=== PATIENT | female | born 1995 | race Two or more races ===

== ENCOUNTER 2024-03-26 07:54 | Day surgery (SDC) | payer OTHER ==
[2024-03-26] MEDS ORDERED: HEMOSTATIC MATRIX 1 KIT KIT TOP ONE (12:45)
[2024-03-26] MEDS ORDERED: METRONIDAZOLE/SODIUM CHLORIDE 500 MG/100 ML PIGGYBACK IV SCH (12:45)
[2024-03-26] MEDS ORDERED: BUPIVACAINE HCL 30 ML VIAL IJ ONE (12:45)
[2024-03-26] MEDS ORDERED: POVIDONE-IODINE 118 ML BOTT TOP ONE (12:45)
[2024-03-26] MEDS ORDERED: DIBUCAINE 30 GM TUBE RECTAL ONE (12:45)
[2024-03-26] MEDS ORDERED: CEFTRIAXONE SODIUM 2,000 MG VIAL IV SCH (12:45)
[2024-03-26] MEDS ORDERED: TRAMADOL HCL50 MG PO (14:42)
[2024-03-26] MEDS ORDERED: NEURONTIN300 MG PO (14:42)
[2024-03-26] MEDS ORDERED: INTESTINEX680 M1 PO (14:42)
[2024-03-26] MEDS ORDERED: CELECOXIB200 MG PO (14:42)
[2024-03-26] MEDS ORDERED: MORPHINE SULFATE 4 MG/ML VIAL IV ONE ×4 (18:30→19:00)
[2024-03-26] MEDS ORDERED: ONDANSETRON HCL 2 MG/ML VIAL IV ONE (19:25)
== END 2024-03-26 20:00 | disposition home or self-care (01) ==
LOC: CIR.AMB 07:54
PROVIDERS: ATTEND Surgery
DX: K60.1 Chronic anal fissure (principal); K62.5 Hemorrhage of anus and rectum